=== PATIENT | female | born 1955 | race Caucasian/White ===

== ENCOUNTER 2018-12-26 20:52 | Observation (INO) | payer OTHER ==
[2018-12-26] MEDS ORDERED: SODIUM CHLORIDE 0.9% 1,000 ML IV STA (22:10)
[2018-12-26 22:46] LABS: Basophils # (A) 0.1 k/uL (0-0.2); Basophils % (A) 1 %; Eosinophils # (A) 0.3 k/uL (0-0.7); Eosinophils % (A) 4 %; HGB 11.8 gm/dL (11.4-16.0); Lymphocytes # (A) 1.7 k/uL (1.0-4.8); Lymphocytes % (A) 23 %; MCH 29.4 pg (25.0-35.0); MCHC 32.6 g/dL (31.0-37.0); Mean Platelet Volume 6.7; Monocytes # (A) 0.4 k/uL (0-1.0); Monocytes % (A) 5 %; Neutrophils # (A) 4.9 k/uL (1.3-7.7); Neutrophils % (A) 65 %; Platelet Count 253 k/uL (150-450); RDW 13.1 % (11.5-15.5); WBC 7.6 k/uL (3.8-10.6)
--- NOTE | 2018-12-26 22:46 | CT ---
EXAM: CT Abdomen and Pelvis Without Intravenous Contrast CLINICAL HISTORY: ITS.REASON CT Reason: abdominal pain TECHNIQUE: Axial computed tomography images of the abdomen and pelvis without intravenous contrast. CTDI is 10 mGy and DLP is 540 mGy-cm. This CT exam was performed using one or more of the following dose reduction techniques: automated exposure control, adjustment of the mA and/or kV according to patient size, and/or use of iterative reconstruction technique. COMPARISON: No relevant prior studies available. FINDINGS: Lung bases: Small opacity in the right lower lobe, likely subsegmental atelectasis. Mild cardiomegaly. ABDOMEN: Liver: 11 mm low-density lesion in the right liver, likely a cyst. Gallbladder and bile ducts: Unremarkable. Pancreas: No ductal dilation. Spleen: Unremarkable. Adrenals: Unremarkable. Kidneys and ureters: 15 mm low-density lesion in the right kidney. No obstructing stones. No hydronephrosis. Stomach and bowel: No bowel obstruction. No bowel wall thickening. PELVIS: Appendix: No appendicitis. Bladder: No stones. Reproductive: Unremarkable. ABDOMEN and PELVIS: Intraperitoneal space: Unremarkable. Bones/joints: No acute fractures. Grade 1 anterolisthesis of L3 on L4 with severe spinal canal stenosis. Right total hip arthroplasty hardware is intact. Soft tissues: Unremarkable. Vasculature: No abdominal aortic aneurysm. Lymph nodes: No enlarged lymph nodes. IMPRESSION: 1. No acute intra-abdominal process. 2. Grade 1 anterolisthesis of L3 on L4 with severe spinal canal stenosis. 3. Low-density lesion in the liver and right kidney, incompletely characterized left contrast, but possibly cysts. 4. Cardiomegaly. Small subsegmental atelectasis in the right lower lobe.
[2018-12-26 22:50] LABS: Appearance,Urine Clear (Clear); Bilirubin,Urine Negative (Negative); Blood,Urine Moderate (Negative); Color,Urine Light Yellow; Glucose,Urine (UA) Negative (Negative); Ketones,Urine Negative (Negative); Leukocyte Esterase,Urine Negative (Negative); Mucus,Urine Rare /hpf; Nitrite,Urine Negative (Negative); PH, Urine 6.5 (5.0-8.0); Protein,Urine Negative (Negative); RBC,Urine 11 /hpf (0-5); Specific Gravity,Urine 1.009 (1.001-1.035); Urobilinogen,Urine <2.0 mg/dL (<2.0); WBC,Urine <1 /hpf (0-5)
--- NOTE | 2018-12-26 22:53 | ED ---
General Adult HPI - General Source: patient Mode of arrival: wheelchair Limitations: no limitations <Leticia Mills - Last Filed: 12/27/18 02:19> <Malinda Thomas - Last Filed: 12/31/18 13:55> - General Chief complaint: Dizziness Stated complaint: Hypertensive Time Seen by Provider: 12/26/18 21:49 - History of Present Illness Initial comments: 63-year-old female patient presents to the emergency department today for multiple complaints. Patient states that for the last week she has been feeling fatigued, weak, and has been having increasing back pain. Patient states that she has been having back pain increasing over the last few months. States that she did have an MRI in November which showed severe degenerative disc disease. She is reporting radiation of the pain down the left leg to the knee. Denies saddle anesthesia or loss of bowel or bladder control. Denies numbness or tingling to the lower extremities. 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 Patient states she has been having low-grade fevers since onset of the parvo. Patient is reporting fevers daily from 99-101F. Patient states that her blood pressure has been elevated as well. Patient states she has been monitoring in his belt well over 200 systolic. States that her physician and started on carvedilol which is improved blood pressure but has not normalized it. Patient states that she is very sensitive to blood pressure medications and often gets headaches and leg pain with this. She denies any chest pain or shortness of breath. She is reporting mild lower abdominal pain. States that she is having some nausea intermittently but denies any vomiting. She is having urinary frequency. Denies any constipation or diarrhea. Patient denies any recent rash, shortness breath, chest pain, numbness, tingling, dizziness, weakness, headache, visual changes, or any other complaints. (Leticia Mills) - Related Data Home Medications Medication Instructions Recorded Confirmed Ibuprofen [Advil] 200 mg PO Q6HR PRN 12/27/18 12/27/18 L. Rhamnosus GG/Inulin [Culturelle 1 cap PO DAILY 12/27/18 12/27/18 Probiotics Capsule] QUEtiapine FUMARATE 12.5 mg PO HS 12/27/18 12/27/18 Ubiquinol 100 mg PO DAILY 12/27/18 12/27/18 Previous Rx's Medication Instructions Recorded Carvedilol [Coreg] 6.25 mg PO BID-W/MEALS #60 tab 12/28/18 Lisinopril [Zestril] 40 mg PO DAILY #60 tab 12/30/18 amLODIPine [Norvasc] 10 mg PO DAILY #30 tab 12/30/18 cloNIDine HCL [Catapres] 0.1 mg PO BID #60 tab 12/30/18 Allergies Allergy/AdvReac Type Severity Reaction Status Date / Time sulfamethoxazole Allergy Anaphylaxis Verified 12/27/18 07:32 [From Bactrim] trimethoprim [From Bactrim] Allergy Anaphylaxis Verified 12/27/18 07:32 fluoxetine AdvReac Rash/Hives Verified 12/27/18 07:32 fluoroquinolones Allergy Unknown Uncoded 12/27/18 07:32 Review of Systems ROS Other: All systems not noted in ROS Statement are negative. <Leticia Mills - Last Filed: 12/27/18 02:19> ROS Other: All systems not noted in ROS Statement are negative. <Malinda Thomas - Last Filed: 12/31/18 13:55> ROS Statement: Those systems with pertinent positive or pertinent negative responses have been documented in the HPI. Past Medical History Past Medical History: Asthma Additional Past Medical History / Comment(s): BRAIN TUMOR, SPINAL CORD LESION, Parvo, fallw ith broken nose, necrotizing facitits History of Any Multi-Drug Resistant Organisms: None Reported Additional Past Surgical History / Comment(s): RIGHT HIP Past Psychological History: No Psychological Hx Reported Smoking Status: Never smoker Past Alcohol Use History: Rare Past Drug Use History: None Reported <Leticia Mills - Last Filed: 12/27/18 02:19> General Exam Limitations: no limitations General appearance: alert, in no apparent distress, other (Physical well- developed, well-nourished adult female patient in no acute distress. Vital signs upon presentation are temperature 99.1F, pulse 66, respirations 18, blood pressure 218/118, pulse ox 97% on room air.) Eye exam: Present: normal appearance, PERRL, EOMI. Absent: scleral icterus, conjunctival injection, periorbital swelling ENT exam: Present: normal exam, normal oropharynx, mucous membranes moist Respiratory exam: Present: normal lung sounds bilaterally. Absent: respiratory distress, wheezes, rales, rhonchi, stridor Cardiovascular Exam: Present: regular rate, normal rhythm, normal heart sounds. Absent: systolic murmur, diastolic murmur, rubs, gallop, clicks GI/Abdominal exam: Present: soft, tenderness (Mild left and right lower quadrant tenderness), normal bowel sounds. Absent: distended, guarding, rebound, rigid Back exam: Present: normal inspection. Absent: CVA tenderness (R), CVA tenderness (L) Neurological exam: Present: alert, oriented X3, CN II-XII intact, other (Strength in all 4 extremities is 5/5.) Psychiatric exam: Present: normal affect, normal mood Skin exam: Present: warm, dry, intact, normal color. Absent: rash <Leticia Mills M - Last Filed: 12/27/18 02:19> Course Vital Signs 12/26/18 12/26/18 12/26/18 21:18 21:38 21:40 Temperature 99.1 F Pulse Rate 66 69 Pulse Rate [ 66 [employer] ] Respiratory 18 18 Rate Blood Pressure 218/118 197/108 O2 Sat by Pulse 97 96 Oximetry 12/26/18 12/27/18 12/27/18 23:18 00:19 00:31 Temperature Pulse Rate 67 72 Pulse Rate [ [employer] ] Respiratory 18 18 Rate Blood Pressure 207/114 189/97 152/94 O2 Sat by Pulse 97 94 L Oximetry 12/27/18 12/27/18 12/27/18 00:32 00:54 01:44 Temperature Pulse Rate 72 74 69 Pulse Rate [ [employer] ] Respiratory 20 20 20 Rate Blood Pressure 152/94 179/102 192/114 O2 Sat by Pulse 95 97 95 Oximetry 12/27/18 12/27/18 01:59 02:27 Temperature Pulse Rate 83 84 Pulse Rate [ [employer] ] Respiratory 20 18 Rate Blood Pressure 174/106 179/101 O2 Sat by Pulse 96 97 Oximetry EKG Findings - EKG Comments: EKG Findings:: EKG obtained at 00 55 shows normal sinus rhythm with a ventricular rate of 73, NV interval 190, QRS duration 98, QT 410, QTC 451. No evidence of ST elevation or depression. <Leticia Mills - Last Filed: 12/27/18 02:19> Medical Decision Making - Lab Data Result diagrams: 12/26/18 22:15 12/26/18 22:15 - Radiology Data Radiology results: report reviewed, image reviewed <Leticia Mills - Last Filed: 12/27/18 02:19> - Lab Data Result diagrams: 12/30/18 07:28 12/30/18 07:28 <Malinda Thomas - Last Filed: 12/31/18 13:55> - Medical Decision Making 63-year-old female patient presents to the emergency department today for evaluation of weakness, fatigue, and dizziness. Patient is also reporting her blood pressures have been high. She is reporting increased back pain and hematuria. Physical examination is relatively unremarkable. She is neurologically intact with no focal deficits. Labs reviewed and did reveal low potassium at 3.1. Urinalysis showed evidence for microscopic hematuria. With increased back pain and presence of blood in the urine he did perform CT abdomen and pelvis without contrast, states it did show a renal lesion which is low density probably a cyst but poorly characterized due to lack of contrast in the study. No evidence for kidney stone. No other abnormalities. Patient was given a dose of labetalol here in the emergency department, did improve blood pressure but then the blood pressure increased again. Patient did report feeling unwell with cramping after receiving the blood pressure medication. Given patient's symptoms and consistently high blood pressure we will admit for accelerated hypertension and further evaluation. (Leticia Mills) % And evaluated the patient. I do agree that based on the patient's significant hypertension she does require admission at hospital for hypertensive urgency. Patient care was discussed with admitting physician Dr. Jonathan Sánchez who agrees with plan for admission. (Malinda Thomas) - Lab Data Lab Results 12/26/18 12/26/18 12/26/18 Range/Units 22:15 22:15 22:15 WBC 7.6 (3.8-10.6) k/uL RBC 4.00 (3.80-5.40) m/uL Hgb 11.8 (11.4-16.0) gm/dL Hct 36.0 (34.0-46.0) % MCV 90.0 (80.0-100.0) fL MCH 29.4 (25.0-35.0) pg MCHC 32.6 (31.0-37.0) g/dL RDW 13.1 (11.5-15.5) % Plt Count 253 (150-450) k/uL Neutrophils % 65 % Lymphocytes % 23 % Monocytes % 5 % Eosinophils % 4 % Basophils % 1 % Neutrophils # 4.9 (1.3-7.7) k/uL Lymphocytes # 1.7 (1.0-4.8) k/uL Monocytes # 0.4 (0-1.0) k/uL Eosinophils # 0.3 (0-0.7) k/uL Basophils # 0.1 (0-0.2) k/uL PT 10.0 (9.0-12.0) sec INR 0.9 (<1.2) APTT 24.3 (22.0-30.0) sec Sodium 140 (137-145) mmol/L Potassium 3.1 L (3.5-5.1) mmol/L Chloride 103 (98-107) mmol/L Carbon Dioxide 27 (22-30) mmol/L Anion Gap 10 mmol/L BUN 22 H (7-17) mg/dL Creatinine 0.66 (0.52-1.04) mg/dL Est GFR (CKD-EPI)AfAm >90 (>60 ml/min/1.73 sqM) Est GFR (CKD-EPI)NonAf >90 (>60 ml/min/1.73 sqM) Glucose 94 (74-99) mg/dL Calcium 9.9 (8.4-10.2) mg/dL Total Bilirubin 0.3 (0.2-1.3) mg/dL AST 21 (14-36) U/L ALT 16 (9-52) U/L Alkaline Phosphatase 78 (38-126) U/L Troponin I (0.000-0.034) ng/mL Total Protein 7.1 (6.3-8.2) g/dL Albumin 4.2 (3.5-5.0) g/dL Amylase 73 (30-110) U/L Lipase 227 (23-300) U/L Urine Color Urine Appearance (Clear) Urine pH (5.0-8.0) Ur Specific [place] (1.001-1.035) Urine Protein (Negative) Urine Glucose (UA) (Negative) Urine Ketones (Negative) Urine Blood (Negative) Urine Nitrite (Negative) Urine Bilirubin (Negative) Urine Urobilinogen (<2.0) mg/dL Ur Leukocyte Esterase (Negative) Urine RBC (0-5) /hpf Urine WBC (0-5) /hpf Urine Mucus (None) /hpf 12/26/18 12/26/18 Range/Units 22:15 22:15 WBC (3.8-10.6) k/uL RBC (3.80-5.40) m/uL Hgb (11.4-16.0) gm/dL Hct (34.0-46.0) % MCV (80.0-100.0) fL MCH (25.0-35.0) pg MCHC (31.0-37.0) g/dL RDW (11.5-15.5) % Plt Count (150-450) k/uL Neutrophils % % Lymphocytes % % Monocytes % % Eosinophils % % Basophils % % Neutrophils # (1.3-7.7) k/uL Lymphocytes # (1.0-4.8) k/uL Monocytes # (0-1.0) k/uL Eosinophils # (0-0.7) k/uL Basophils # (0-0.2) k/uL PT (9.0-12.0) sec INR (<1.2) APTT (22.0-30.0) sec Sodium (137-145) mmol/L Potassium (3.5-5.1) mmol/L Chloride (98-107) mmol/L Carbon Dioxide (22-30) mmol/L Anion Gap mmol/L BUN (7-17) mg/dL Creatinine (0.52-1.04) mg/dL Est GFR (CKD-EPI)AfAm (>60 ml/min/1.73 sqM) Est GFR (CKD-EPI)NonAf (>60 ml/min/1.73 sqM) Glucose (74-99) mg/dL Calcium (8.4-10.2) mg/dL Total Bilirubin (0.2-1.3) mg/dL AST (14-36) U/L ALT (9-52) U/L Alkaline Phosphatase (38-126) U/L Troponin I 0.013 (0.000-0.034) ng/mL Total Protein (6.3-8.2) g/dL Albumin (3.5-5.0) g/dL Amylase (30-110) U/L Lipase (23-300) U/L Urine Color Light Yellow Urine Appearance Clear (Clear) Urine pH 6.5 (5.0-8.0) Ur Specific [place] 1.009 (1.001-1.035) Urine Protein Negative (Negative) Urine Glucose (UA) Negative (Negative) Urine Ketones Negative (Negative) Urine Blood Moderate H (Negative) Urine Nitrite Negative (Negative) Urine Bilirubin Negative (Negative) Urine Urobilinogen <2.0 (<2.0) mg/dL Ur Leukocyte Esterase Negative (Negative) Urine RBC 11 H (0-5) /hpf Urine WBC <1 (0-5) /hpf Urine Mucus Rare H (None) /hpf - Radiology Data CT abdomen and pelvis without contrast was obtained. Report was reviewed in its entirety. Impression by Dr. Vicente shows no acute intra-abdominal process. Grade 1 anterolisthesis of L3 and L4 with severe spinal canal stenosis. The density lesion in the liver and right kidney, incomplete we characterized without contrast, possibly cyst. Cardiomegaly. Small subsegmental atelectasis in the right lower lobe. (Leticia Mills) Disposition Decision to Admit Reason: Admit from EC Decision Date: 12/27/18 Decision Time: 01:33 <Leticia Mills - Last Filed: 12/27/18 02:19> <Malinda Thomas - Last Filed: 12/31/18 13:55> Clinical Impression: Accelerated hypertension Disposition: ADMITTED IP TO THIS [facility] Condition: Stable
[2018-12-26 22:57] LABS: ALT 16 U/L (9-52); AST 21 U/L (14-36); African American GFR (CKD) >90 (>60 ml/min/1.73 sqM); Albumin 4.2 g/dL (3.5-5.0); Alkaline Phosphatase 78 U/L (38-126); Amylase 73 U/L (30-110); Anion Gap 10 mmol/L; Blood Urea Nitrogen 22 mg/dL (7-17); Calcium 9.9 mg/dL (8.4-10.2); Carbon Dioxide 27 mmol/L (22-30); Chloride 103 mmol/L (98-107); Glucose 94 mg/dL (74-99); Potassium 3.1 mmol/L (3.5-5.1); Sodium 140 mmol/L (137-145); Total Bilirubin 0.3 mg/dL (0.2-1.3); Total Protein 7.1 g/dL (6.3-8.2)
[2018-12-26] MEDS ORDERED: POTASSIUM CHLORIDE ER 20 MEQ TAB.ER PO STA (22:58)
[2018-12-26 23:03] LABS: INR 0.9 (<1.2); Partial Thromboplastin Time 24.3 sec (22.0-30.0)
[2018-12-26] MEDS ORDERED: LABETALOL 5 MG/ML VIAL MDV IVP STA (23:49)
[2018-12-27] MEDS ORDERED: NALOXONE 0.4 MG/ML 1 ML VIAL IV PRN (01:35)
[2018-12-27] MEDS ORDERED: hydrALAZINE HCL 20 MG/ML 1 ML VIAL IVP STA (01:36)
[2018-12-27 03:43] VITALS: BMI 29.7
[2018-12-27] MEDS: ACETAMINOPHEN TAB 325 MG TAB PO PRN ×2 (05:13→21:54)
[2018-12-27 07:23] LABS: ALT 21 U/L (9-52); AST 18 U/L (14-36); African American GFR (CKD) >90 (>60 ml/min/1.73 sqM); Albumin 3.9 g/dL (3.5-5.0); Alkaline Phosphatase 76 U/L (38-126); Anion Gap 8 mmol/L; Blood Urea Nitrogen 15 mg/dL (7-17); Calcium 9.5 mg/dL (8.4-10.2); Carbon Dioxide 26 mmol/L (22-30); Chloride 108 mmol/L (98-107); Glucose 110 mg/dL (74-99); Magnesium 1.9 mg/dL (1.6-2.3); Potassium 2.9 mmol/L (3.5-5.1); Sodium 142 mmol/L (137-145); Total Bilirubin 0.6 mg/dL (0.2-1.3); Total Protein 6.7 g/dL (6.3-8.2)
[2018-12-27] MEDS ORDERED: CARVEDILOL 12.5 MG TAB PO SCH (07:30)
[2018-12-27] MEDS ORDERED: CARVEDILOL 3.125 MG TAB PO SCH (07:30)
[2018-12-27] MEDS ORDERED: Potassium Replacement Protocol 1 EACH MISC MISCELLANE PRN (07:47)
[2018-12-27] MEDS: POTASSIUM CHLORIDE ER 20 MEQ TAB.ER PO SCH ×3 (08:37→10:54)
[2018-12-27] MEDS ORDERED: CARVEDILOL 3.125 MG TAB PO STA (13:15)
--- NOTE | 2018-12-27 14:03 | P.HPIM ---
History of Present Illness H&P Date: 12/27/18 Claire Aden is a 63 yo F with PMH significant for hypertension, back pain, insomnia who presented to [facility] ED after she was found to be in hypertensive emergency at urgent care. She states she is currently being worked up for back pain and she had a viral infection a few months ago which she feels has caused her some residual fatigue and myalgias. Pt went to [place] yesterday to discuss her fatigue and while there was noted to have a BP of 200s systolic over 100s. In the ED, pt was hypertensive to 220/120, pulse 64, remained of labs wnl with exception of mild hypokalemia. She denied chest pain but endorses headache and blurry vision. Pt also complained of generalized abdominal pain and CT abd/pelvis was performed which was negative. Pt was recently started on coreg by her PCP which she states controlls her BP somewhat but has not had a chance to adjust the dose as she has many side effects with BP medications. Pt states "I have tried about 50 different BP pills and none of them work." She complains of headache and blurry vision with the coreg, states she was recently trialled on aldactone which made her lightheaded. Review of Systems All systems: negative Constitutional: Reports malaise, Reports weakness, Denies chills, Denies fever Eyes: denies blurred vision, denies pain Ears, nose, mouth and throat: Denies headache, Denies sore throat Cardiovascular: Reports high blood pressure, Reports lightheadedness, Denies chest pain, Denies dyspnea on exertion, Denies edema, Denies shortness of breath Respiratory: Denies cough Gastrointestinal: Denies abdominal pain, Denies diarrhea, Denies nausea, Denies vomiting Genitourinary: Denies dysuria, Denies hematuria Musculoskeletal: Denies myalgias Integumentary: Denies pruritus, Denies rash Neurological: Reports headaches, Denies numbness, Denies weakness Psychiatric: Denies anxiety, Denies depression Endocrine: Denies fatigue, Denies weight change Past Medical History Past Medical History: Asthma Additional Past Medical History / Comment(s): BRAIN TUMOR, SPINAL CORD LESION, Parvo, fall with broken nose, necrotizing fasciitis History of Any Multi-Drug Resistant Organisms: None Reported Additional Past Surgical History / Comment(s): RIGHT HIP, septoplasty, Past Anesthesia/Blood Transfusion Reactions: No Reported Reaction Past Psychological History: No Psychological Hx Reported Smoking Status: Former smoker Past Alcohol Use History: Rare Past Drug Use History: Marijuana Additional Drug Use History / Comment(s): CBD oil - Past Family History mother Family Medical History: No Reported History father Family Medical History: No Reported History Medications and Allergies Home Medications Medication Instructions Recorded Confirmed Type Carvedilol [Coreg] 1.56 - 3.125 mg PO BID 12/27/18 12/27/18 History Ibuprofen [Advil] 200 mg PO Q6HR PRN 12/27/18 12/27/18 History L. Rhamnosus GG/Inulin [Culturelle 1 cap PO DAILY 12/27/18 12/27/18 History Probiotics Capsule] QUEtiapine FUMARATE 12.5 mg PO HS 12/27/18 12/27/18 History Ubiquinol 100 mg PO DAILY 12/27/18 12/27/18 History Allergies Allergy/AdvReac Type Severity Reaction Status Date / Time sulfamethoxazole Allergy Anaphylaxis Verified 12/27/18 07:32 [From Bactrim] trimethoprim [From Bactrim] Allergy Anaphylaxis Verified 12/27/18 07:32 fluoxetine AdvReac Rash/Hives Verified 12/27/18 07:32 fluoroquinolones Allergy Unknown Uncoded 12/27/18 07:32 Physical Exam Vitals: Vital Signs Temp Pulse Pulse Pulse Resp BP BP 12/27/18 12:15 98 F 70 16 175/91 12/27/18 08:35 97.8 F 76 16 12/27/18 04:00 76 16 12/27/18 02:27 84 18 179/101 12/27/18 01:59 83 20 174/106 12/27/18 01:44 69 20 192/114 12/27/18 00:54 74 20 179/102 12/27/18 00:32 72 20 152/94 12/27/18 00:31 72 18 152/94 12/27/18 00:19 67 18 189/97 12/26/18 23:18 207/114 12/26/18 21:40 66 12/26/18 21:38 69 18 197/108 12/26/18 21:18 99.1 F 66 18 218/118 BP Pulse Ox 12/27/18 12:15 182/84 97 12/27/18 08:35 146/73 95 12/27/18 04:00 191/104 94 L 12/27/18 02:27 97 12/27/18 01:59 96 12/27/18 01:44 95 12/27/18 00:54 97 12/27/18 00:32 95 12/27/18 00:31 94 L 12/27/18 00:19 97 12/26/18 23:18 12/26/18 21:40 12/26/18 21:38 96 12/26/18 21:18 97 Intake and Output 12/26/18 12/27/18 12/27/18 22:59 06:59 14:59 Intake Total 1000 120 Balance 1000 120 Intake: Intake, IV Titration 1000 Amount Sodium Chloride 0.9% 1, 1000 000 ml @ 999 mls/hr IV . Q1H1M STA Rx#:[id number] Oral 120 Other: Voiding Method Toilet # Voids 5 0 Weight 72.575 kg 73 kg General: Obese, well developed, NAD. Vitals reviewed Eyes: PERRL, EOMI, conjunctiva normal HENT: normocephalic, mucus membranes moist Neck: supple, no JVD Lungs: normal respiratory effort, no wheezes or rales CV: Regular rate and rhythm, no murmur. Peripheral pulses 2+ Abdomen: soft, nondistended, no organomegaly Lymph: no cervical or axillary LAD Skin: warm and dry. Neuro: A&Ox3, normal mood and affect Results CBC & Chem 7: 12/26/18 22:15 12/27/18 06:39 Labs: Abnormal Lab Results - Last 24 Hours (Table) 12/26/18 12/26/18 12/27/18 Range/Units 22:15 22:15 06:39 Potassium 3.1 L 2.9 L (3.5-5.1) mmol/L Chloride 108 H (98-107) mmol/L BUN 22 H (7-17) mg/dL Glucose 110 H (74-99) mg/dL Urine Blood Moderate H (Negative) Urine RBC 11 H (0-5) /hpf Urine Mucus Rare H (None) /hpf Thrombosis Risk Factor Assmnt - Choose All That Apply Any of the Below Risk Factors Present?: Yes Each Factor Represents 1 point: Obesity (BMI >25), Swollen legs (current) Other Risk Factors: Yes Each Risk Factor Represents 2 Points: Age 61-74 years Thrombosis Risk Factor Assessment Total Risk Factor Score: 4 Thrombosis Risk Factor Assessment Level: Moderate Risk Assessment and Plan (1) Accelerated hypertension Current Visit: Yes Status: Acute Code(s): I10 - ESSENTIAL (PRIMARY) HYPERTENSION SNOMED Code(s): 75929371 (2) Hypokalemia Current Visit: Yes Status: Acute Code(s): E87.6 - HYPOKALEMIA SNOMED Code(s): 67169303 Plan: 1. Accelerated hypertension with hypertensive emergency. S/p labetolol and hydralazine in the ED. Increase coreg to 6.25 mg bid. Will continue to monitor and consider starting lisinopril as well 2. Hypokalemia. Replete per protocol
[2018-12-27] MEDS: LISINOPRIL 10 MG TAB PO SCH (18:33)
[2018-12-27] MEDS: CARVEDILOL 6.25 MG TAB PO SCH (18:34)
[2018-12-27] MEDS ORDERED: POTASSIUM CHLORIDE ER 20 MEQ TAB.ER PO ONE (19:00)
[2018-12-27] MEDS ORDERED: QUEtiapine 25 MG TAB PO SCH (21:00)
[2018-12-27] MEDS: QUEtiapine 25 MG TAB PO SCH (21:55)
[2018-12-28] MEDS: CARVEDILOL 6.25 MG TAB PO SCH ×2 (07:40→16:38)
[2018-12-28] MEDS: LISINOPRIL 10 MG TAB PO SCH (08:25)
[2018-12-28] MEDS ORDERED: LISINOPRIL 10 MG TAB PO STA (09:26)
[2018-12-28] MEDS: ACETAMINOPHEN TAB 325 MG TAB PO PRN (10:56)
[2018-12-28] MEDS: QUEtiapine 25 MG TAB PO SCH (20:36)
[2018-12-29] MEDS: ACETAMINOPHEN TAB 325 MG TAB PO PRN (07:35)
[2018-12-29] MEDS: IBUPROFEN 200 MG TAB PO PRN ×2 (09:20→22:12)
[2018-12-29] MEDS: LISINOPRIL 20 MG TAB PO SCH ×2 (09:20→11:51)
[2018-12-29] MEDS: CARVEDILOL 6.25 MG TAB PO SCH ×2 (09:20→16:53)
[2018-12-29] MEDS ORDERED: PREGABALIN 25 MG CAP PO PRN (09:47)
[2018-12-29] MEDS ORDERED: amLODIPine 5 MG TAB PO SCH (12:15)
--- NOTE | 2018-12-29 12:51 | P.PN ---
Subjective Progress Note Date: 12/28/18 Claire Aden is a 63 yo F with PMH significant for hypertension, back pain, insomnia who presented to [facility] ED after she was found to be in hypertensive emergency at urgent care. She states she is currently being worked up for back pain and she had a viral infection a few months ago which she feels has caused her some residual fatigue and myalgias. Pt went to [employer] yesterday to discuss her fatigue and while there was noted to have a BP of 200s systolic over 100s. In the ED, pt was hypertensive to 220/120, pulse 64, remained of labs wnl with exception of mild hypokalemia. She denied chest pain but endorses headache and blurry vision. Pt also complained of generalized abdominal pain and CT abd/pelvis was performed which was negative. Pt was recently started on coreg by her PCP which she states controlls her BP somewhat but has not had a chance to adjust the dose as she has many side effects with BP medications. Pt states "I have tried about 50 different BP pills and none of them work." She complains of headache and blurry vision with the coreg, states she was recently trialled on aldactone which made her lightheaded. 12/28/2018 systolic blood pressures in the 170s ,increased lisinopril dose. Creatinine 0.59 Telemetry sinus rhythm. Complains of sciatica discomfort. Pot assium 2.9, receiving supplements. Denies chest pain, palpitations or shortness of breath. Denies lightheadedness dizziness or focal deficits. Objective - Vital Signs Vital signs: Vital Signs Temp 98.1 F 12/28/18 08:00 Pulse 72 12/28/18 16:00 Resp 16 12/28/18 16:00 BP 169/77 12/28/18 16:00 Pulse Ox 95 12/28/18 16:00 Intake & Output 12/27/18 12/28/18 12/28/18 18:59 06:59 18:59 Intake Total 480 480 Balance 480 480 Weight 75.2 kg Intake: Oral 480 480 Other: Voiding Method Toilet Toilet # Voids 1 1 0 # Bowel Movements 0 0 - Exam General: Obese, well developed, NAD. Eyes: PERRL, EOMI, conjunctiva normal HENT: normocephalic, mucus membranes moist Neck: supple, no JVD Lungs: normal respiratory effort, no wheezes or rales CV: Regular rate and rhythm, no murmur. Peripheral pulses 2+ Abdomen: soft, nondistended, no organomegaly, positive bowel sounds Skin: warm and dry. Neuro: A&Ox3, normal mood and affect - Labs CBC & Chem 7: 12/26/18 22:15 12/27/18 15:58 Labs: Microbiology - Last 24 Hours (Table) 12/26/18 23:00 Blood Culture - Preliminary Blood No Growth after 24 hours Assessment and Plan Assessment: (1) Accelerated hypertension Current Visit: Yes Status: Acute Code(s): I10 - ESSENTIAL (PRIMARY) HYPERTENSION SNOMED Code(s): 20232252 (2) Hypokalemia Current Visit: Yes Status: Acute Code(s): E87.6 - HYPOKALEMIA SNOMED Code(s): 88447260 (3) 11 mm low-density lesion right liver, likely a cyst; 15 mm low-density lesion in the right kidney- no obstructing stones, no hydronephrosis ;outpatient ultrasound recommended for further evaluation (4) grade 1 anterior listhesis of L3 on L4 with severe spinal canal stenosis (5) atelectasis Plan: Continue on current medication regime ,monitoring and symptomatic treatment. Lisinopril dose further increase this morning, continue to monitor with potential discharge later this afternoon if blood pressure improves. Ibuprofen added on for complaints of sciatica pain. Orthopedics consult ordered regarding severe spinal canal stenosis The impression and plan of care has been dictated as directed. : I performed a history and examination of this patient, discussed the same with the dictator. I agree with the dictator's note ,documented as a scribe. Any additional findings or plans will be noted.
[2018-12-29] MEDS ORDERED: amLODIPine 5 MG TAB PO STA (14:40)
[2018-12-29] MEDS: QUEtiapine 25 MG TAB PO SCH (22:07)
[2018-12-30] MEDS: IBUPROFEN 200 MG TAB PO PRN (04:39)
[2018-12-30] MEDS ORDERED: ALPRAZolam 0.25 MG TAB PO PRN (06:38)
--- NOTE | 2018-12-30 06:43 | P.PN ---
Subjective Progress Note Date: 12/29/18 Claire Aden is a 63 yo F with PMH significant for hypertension, back pain, insomnia who presented to [facility] ED after she was found to be in hypertensive emergency at urgent care. She states she is currently being worked up for back pain and she had a viral infection a few months ago which she feels has caused her some residual fatigue and myalgias. Pt went to [facility] yesterday to discuss her fatigue and while there was noted to have a BP of 200s systolic over 100s. In the ED, pt was hypertensive to 220/120, pulse 64, remained of labs wnl with exception of mild hypokalemia. She denied chest pain but endorses headache and blurry vision. Pt also complained of generalized abdominal pain and CT abd/pelvis was performed which was negative. Pt was recently started on coreg by her PCP which she states controlls her BP somewhat but has not had a chance to adjust the dose as she has many side effects with BP medications. Pt states "I have tried about 50 different BP pills and none of them work." She complains of headache and blurry vision with the coreg, states she was recently trialled on aldactone which made her lightheaded. 12/28/2018 systolic blood pressures in the 170s ,increased lisinopril dose. Creatinine 0.59 Telemetry sinus rhythm. Complains of sciatica discomfort. Pot assium 2.9, receiving supplements. Denies chest pain, palpitations or shortness of breath. Denies lightheadedness dizziness or focal deficits. 12/29/2018 telemetry sinus rhythm , systolic blood pressure fluctuating from 130s to 170s. Lisinopril dose increased, Norvasc added. Objective - Vital Signs Vital signs: Vital Signs Temp 96.3 F L 12/29/18 08:00 Pulse 75 12/29/18 12:00 Resp 16 12/29/18 15:45 BP 182/80 12/29/18 14:11 Pulse Ox 99 12/29/18 08:00 Intake & Output 12/28/18 12/29/18 12/29/18 18:59 06:59 18:59 Intake Total 480 240 Balance 480 240 Weight 76.8 kg Intake: Oral 480 240 Other: Voiding Method Toilet Toilet Toilet # Voids 0 2 # Bowel Movements 0 0 - Exam General: Obese, well developed, NAD, anxious. Eyes: PERRL, EOMI, conjunctiva normal HENT: normocephalic, mucus membranes moist Neck: supple, no JVD Lungs: normal respiratory effort, no wheezes or rales CV: Regular rate and rhythm, no murmur. Peripheral pulses 2+ Abdomen: soft, nondistended, no organomegaly, positive bowel sounds Skin: warm and dry. Neuro: A&Ox3, normal mood and affect - Labs CBC & Chem 7: 12/26/18 22:15 12/27/18 15:58 Labs: Microbiology - Last 24 Hours (Table) 12/26/18 23:00 Blood Culture - Preliminary Blood No Growth after 48 hours Assessment and Plan Assessment: (1) Accelerated hypertension Current Visit: Yes Status: Acute Code(s): I10 - ESSENTIAL (PRIMARY) HYPERTENSION SNOMED Code(s): 77474918 (2) Hypokalemia Current Visit: Yes Status: Acute Code(s): E87.6 - HYPOKALEMIA SNOMED Code(s): 27326797 (3) 11 mm low-density lesion right liver, likely a cyst; 15 mm low-density lesion in the right kidney- no obstructing stones, no hydronephrosis ;outpatient ultrasound recommended for further evaluation (4) grade 1 anterior listhesis of L3 on L4 with severe spinal canal stenosis (5) atelectasis (6) anxiety Plan: Continue on current medication regime ,monitoring and symptomatic treatment. Lisinopril increased, Norvasc added to med regime. Xanax added prn for anxiety. Echo ordered. Cardiology consulted. Close monitoring of electrolytes, renal function with repeat labs ordered for a.m. The impression and plan of care has been dictated as directed. : I performed a history and examination of this patient, discussed the same with the dictator. I agree with the dictator's note ,documented as a scribe. Any additional findings or plans will be noted.
[2018-12-30] MEDS: CARVEDILOL 6.25 MG TAB PO SCH (06:47)
[2018-12-30 07:57] LABS: Basophils % (A) 1 %; Eosinophils # (A) 0.3 k/uL (0-0.7); Eosinophils % (A) 5 %; HGB 11.5 gm/dL (11.4-16.0); Lymphocytes # (A) 1.6 k/uL (1.0-4.8); Lymphocytes % (A) 28 %; MCHC 32.8 g/dL (31.0-37.0); MCV 91.4 fL (80.0-100.0); Mean Platelet Volume 6.8; Monocytes # (A) 0.3 k/uL (0-1.0); Monocytes % (A) 5 %; Neutrophils # (A) 3.4 k/uL (1.3-7.7); Neutrophils % (A) 60 %; Platelet Count 262 k/uL (150-450); RBC 3.83 m/uL (3.80-5.40); RDW 12.9 % (11.5-15.5); WBC 5.6 k/uL (3.8-10.6)
[2018-12-30 08:09] LABS: African American GFR (CKD) >90 (>60 ml/min/1.73 sqM); Anion Gap 6 mmol/L; Blood Urea Nitrogen 21 mg/dL (7-17); Calcium 9.8 mg/dL (8.4-10.2); Carbon Dioxide 29 mmol/L (22-30); Chloride 104 mmol/L (98-107); Glucose 86 mg/dL (74-99); Potassium 3.7 mmol/L (3.5-5.1); Sodium 139 mmol/L (137-145)
[2018-12-30] MEDS: LISINOPRIL 20 MG TAB PO SCH (08:52)
[2018-12-30 08:55] VITALS: RESP 16; TEMP 97.9
[2018-12-30] MEDS ORDERED: amLODIPine 10 MG TAB PO SCH (09:00)
[2018-12-30] MEDS ORDERED: cloNIDine HCL 0.1 MG TAB PO SCH (09:00)
--- NOTE | 2018-12-30 09:41 | P.CNOR ---
History of Present Illness - [facility] Consult date: 12/30/18 Consult reason: low back pain (Low back pain with lower extremity radiculopathy on the left) History of present illness: Patient's very pleasant [id number] female who has had history of low back pain over the past few months. She has some chronic on and off type pain in her low back but has worsened over the past few months. She says it correlated with her recent history of Parvo over the past 3 months. She normally lives in [place] but Naresh Velazquez here in [place]. She says she has been having treatment for her low back over the past few months with physical therapy as well as acupuncture. She continues her physical therapy with [facility] physical therapy. She also had taken the gabapentin tramadol as well as Advil she says the medicines have very limited benefit for her. Severe pain is in her low back and extends down her left lower extremity at bedside back of her leg down to her foot. She denies any specific weakness. She says she still able to ambulate and mobilize. She is not having troubles with bowel bladder function. She came hospital due to hypertensive issues and where she was in the 200s over 100. They have been trying to control her blood pressure and is making some progress with this. Review of Systems She denies any shortness breath. She denies any change in bowel bladder function. She denies weakness in her lower shoulders. She feels her pain stems down her left leg and from her back. She did not have any new injury but had a history of a fall several years ago. She denies bowel or bladder changes. Past Medical History Past Medical History: Asthma, Hypertension Additional Past Medical History / Comment(s): BRAIN TUMOR, SPINAL CORD LESION, Parvo, fall with broken nose, necrotizing fasciitis History of Any Multi-Drug Resistant Organisms: None Reported Additional Past Surgical History / Comment(s): RIGHT HIP, septoplasty, Past Anesthesia/Blood Transfusion Reactions: No Reported Reaction Past Psychological History: No Psychological Hx Reported Smoking Status: Former smoker Past Alcohol Use History: Rare Past Drug Use History: Marijuana Additional Drug Use History / Comment(s): CBD oil - Past Family History mother Family Medical History: No Reported History father Family Medical History: No Reported History Medications and Allergies Home Medications Medication Instructions Recorded Confirmed Type Ibuprofen [Advil] 200 mg PO Q6HR PRN 12/27/18 12/27/18 History L. Rhamnosus GG/Inulin [Culturelle 1 cap PO DAILY 12/27/18 12/27/18 History Probiotics Capsule] QUEtiapine FUMARATE 12.5 mg PO HS 12/27/18 12/27/18 History Ubiquinol 100 mg PO DAILY 12/27/18 12/27/18 History Carvedilol [Coreg] 6.25 mg PO BID-W/MEALS #60 tab 12/28/18 Rx Lisinopril 20 mg PO DAILY #30 tab 12/28/18 Rx Allergies Allergy/AdvReac Type Severity Reaction Status Date / Time sulfamethoxazole Allergy Anaphylaxis Verified 12/27/18 07:32 [From Bactrim] trimethoprim [From Bactrim] Allergy Anaphylaxis Verified 12/27/18 07:32 fluoxetine AdvReac Rash/Hives Verified 12/27/18 07:32 fluoroquinolones Allergy Unknown Uncoded 12/27/18 07:32 Physical Examination Osteopathic Statement: *. No significant issues noted on an osteopathic struc tural exam other than those noted in the History and Physical/Consult. - L Spine: dermatomal strength & reflexes bilateral Strength: hip flexion: 5/5 (At her low back is no open wounds lacerations or abrasions. Skin is clear. She is able stand up in her room and ambulate in her room though she does site some what gingerly. She is able to walk her toes and heels. She has 5 out of 5 strength dorsal flexion plantar flexion and EHL hip flexion and extension. Her thighs and calves soft and nontender. Her abdomen soft nontender. Chest has good excursion deep inspiration and expiration neck is nontender to palpation range of motion. Her arms have full active and passive range of motion. HEENT is normocephalic atraumatic. Her blood pressure is 150's over 90s) Results - Labs Labs: Abnormal Lab Results - Last 24 Hours (Table) 12/30/18 Range/Units 07:28 BUN 21 H (7-17) mg/dL Microbiology - Last 24 Hours (Table) 12/26/18 23:00 Blood Culture - Preliminary Blood No Growth after 72 hours H & H 12/26/18 12/30/18 Range/Units 22:15 07:28 Hgb 11.8 11.5 (11.4-16.0) gm/dL Hct 36.0 35.0 (34.0-46.0) % Coagulation 12/26/18 Range/Units 22:15 INR 0.9 (<1.2) Result Diagrams: 12/30/18 07:28 12/30/18 07:28 - Diagnostic results CT Scan - lumbar: report reviewed (There is a computed tomography scan abdomen and pelvis in which the lumbar spine is able to be viewed to some degree. Apparently she had an MRI done in [place] a couple months ago but does not have those images available. The images show significant degenerative change at L3 4 and L4 5. She has a grade 1-2 spondylolisthesis L3 4 and severe disc height loss L3 4 and L4 5. There is evidence of stenosis with bilateral foraminal stenosis and facet arthrosis L3 4 L4 5.), image reviewed Assessment and Plan Assessment: Uncontrolled hypertension Low back pain with left lower extremity radiculopathy Spinal stenosis L3 4 L4 5 Spondylolisthesis L3 4 Neurogenic intermittent claudication bilateral lower extremities due to her spinal stenosis Degenerative disc disease and facet arthrosis Plan: Uncontrolled hypertension Low back pain with left lower extremity radiculopathy Spinal stenosis L3 4 L4 5 Spondylolisthesis L3 4 Neurogenic intermittent claudication bilateral lower extremities due to her spinal stenosis Degenerative disc disease and facet arthrosis The patient is currently admitted in terms of her hypertensive issues and I think she has been receiving appropriate care for this. She'll continue medical management from medicine and cardiology in terms of her hypertension. She has chronic changes at her lumbar spine with spondylolisthesis and spinal stenosis. She is currently involved in outpatient management with physical therapy and medications. She is a candidate for interventional pain management for epidural steroid injections to see if this can alleviate some of her back symptoms as well as her lower extremity radicular and claudication symptoms. We will consult interventional pain management for possible epidural steroid injections. These can be done on an outpatient basis and can continue with management on an outpatient basis as well. The patient is a candidate for surgical intervention for her lumbar spine. Certainly would like to exhaust all conservative measures prior to considering surgical intervention. She would be a candidate for decompression and fusion L3 4 and L4 5. I discussed this at length with her. I do not plan surgical intervention on this admission as she is neurologically stable. She may be able to undergo interventional pain management for epidural steroid injections to see if this alleviates her symptoms adequately. From a spine surgery standpoint it is okay for her to be discharged when she is stable from a medical standpoint and we can continue follow her up on an outpatient basis. We will consult interventional pain management to see her back in our office next 2-3 weeks for recheck evaluation or sooner if she is having worsening.
--- NOTE | 2018-12-30 10:04 | CONS ---
CONSULTATION CHIEF COMPLAINT: Uncontrolled hypertension. This is a 63-year-old lady with history of hypertension who was admitted to the hospital with severe uncontrolled hypertension. On her initial presentation, her blood pressures were in the 200 systolic. She denies chest pain, difficulty in breathing, palpitations, dizziness or focal neurological deficits. There is no history of leg edema, paroxysmal nocturnal dyspnea or orthopnea. She has had back pain related to spinal stenosis. At the time of my evaluation, her blood pressures are better controlled on Norvasc 10 mg daily, Coreg 6.25 b.i.d., and Zestril 40 mg daily. However, the blood pressures are still not optimally controlled. I am adding Catapres 0.1 mg b.i.d. I advised her to undergo an echocardiogram. She has had labs on this admission. The potassium was low and that has been supplemented. It is at 3.7. Creatinine is 0.6. Troponin was negative. PAST MEDICAL HISTORY: Significant for back pain and hypertension. CURRENT MEDICATIONS: Current medications include quetiapine, ibuprofen, lisinopril and Coreg. ALLERGIES: Allergic to SULFA, FLUOROQUINOLONES, and FLUOXETINE. FAMILY HISTORY: Negative for premature coronary artery disease. SOCIAL HISTORY: Negative for current smoking, EtOH abuse or drug abuse. REVIEW OF SYSTEMS: HEENT is unremarkable. CARDIAC: As described above. RESPIRATORY: As described above. GI: Negative. GENITOURINARY: Negative. ALLERGIES/IMMUNOLOGY: Negative. MUSCULOSKELETAL: Significant for back pain. PSYCHOSOCIAL: Negative. ENDOCRINE: Negative. DERM: Negative. CONSTITUTIONAL: Negative. ONCOLOGICAL: Negative. Rest of the system review is not relevant. PHYSICAL EXAMINATION: On exam, patient is comfortable at rest. Afebrile. Heart rate is 65 beats per minute. Blood pressure is 159/81. O2 sat is 97% on room air. There is no jugular venous distention. Carotid upstroke is normal. There is no bruit. Chest exam reveals good air entry bilaterally. Heart exam reveals first and second heart sounds. No gallop. An S4 is heard. Abdomen is soft. Examination of extremities did not reveal any edema. Peripheral pulses are felt. LABS: Labs show that the hemoglobin is 11.5, platelet count is 260. Potassium is 3.7. Creatinine is 0.6. ASSESSMENT: Severe uncontrolled hypertension. PLAN: I will add Catapres to her current medical regimen. I will review the echocardiogram hopefully home later today. She already has an appointment to see Dr. Pino next . She will keep that appointment. MMODL / IJN: [id number] /
--- NOTE | 2018-12-30 11:33 | ECHOF ---
Referral Reason:HTN MEASUREMENTS -------- HEIGHT: 160.0 cm WEIGHT: 75.3 kg BP: 169/81 RVIDd: 3.3 cm (< 3.3) IVSd: 1.9 cm (0.6 - 1.1) LVIDd: 4.1 cm (3.9 - 5.3) LVPWd: 2.1 cm (0.6 - 1.1) IVSs: 2.0 cm LVIDs: 2.8 cm LVPWs: 2.2 cm LAESV Index (A-L): 48.36 ml/m Ao Diam: 3.0 cm (2.0 - 3.7) AV Cusp: 1.5 cm (1.5 - 2.6) LA Diam: 3.8 cm (2.7 - 3.8) MV EXCURSION: 13.189 mm (> 18.000) MV EF SLOPE: 56 mm/s (70 - 150) EPSS: 0.3 cm MV E Derrick: 0.76 m/s MV DecT: 261 ms MV A Derrick: 1.23 m/s MV E/A Ratio: 0.62 RAP: 5.00 mmHg RVSP: 26.31 mmHg FINDINGS -------- Sinus rhythm. This was a technically adequate study. The left ventricular size is normal. There is severe concentric left ventricular hypertrophy. Ove rall left ventricular systolic function is normal with, an EF between 60 - 65 %. Mitral Doppler inf low pattern suggests diastolic filling abnormality 14.66. The right ventricle is mildly enlarged. LA is severely dilated >40 ml/m2 The right atrial size is normal. Interatrial and interventricular septum intact. The aortic valve is trileaflet and appears structurally normal. There is mild aortic valve sclerosi s. There is no evidence of aortic regurgitation. There is no evidence of aortic stenosis. Efuq-ov-krmzvkub mitral regurgitation is present. Mild tricuspid regurgitation present. There is no evidence of pulmonary hypertension. The right v entricular systolic pressure, as measured by Doppler, is 26.31mmHg. There is no pulmonic regurgitation present. The aortic root size is normal. Normal inferior vena cava with normal inspiratory collapse consistent with estimated right atrial pre ssure of 5 mmHg. There is no pericardial effusion. CONCLUSIONS -------- 1. Sinus rhythm. 2. This was a technically adequate study. 3. The left ventricular size is normal. 4. There is severe concentric left ventricular hypertrophy. 5. Overall left ventricular systolic function is normal with, an EF between 60 - 65 %. 6. Mitral Doppler inflow pattern suggest diastolic filling abnormality 14.66. 7. The right ventricle is mildly enlarged. 8. LA is severely dilated >40 ml/m2 9. The right atrial size is normal. 10. Interatrial and interventricular septum intact. 11. The aortic valve is trileaflet and appears structurally normal. 12. There is mild aortic valve sclerosis. 13. There is no evidence of aortic regurgitation. 14. There is no evidence of aortic stenosis. 15. Eiuc-hq-kqszwekd mitral regurgitation is present. 16. Mild tricuspid regurgitation present. 17. There is no evidence of pulmonary hypertension. 18. The right ventricular systolic pressure, as measured by Doppler, is 26.31mmHg. 19. There is no pulmonic regurgitation present. 20. The aortic root size is normal. 21. Normal inferior vena cava with normal inspiratory collapse consistent with estimated right atrial pressure of 5 mmHg. 22. There is no pericardial effusion. COVER SEAMER: Cheryl Bryan RDCS
[2018-12-30 12:20] VITALS: BP 131/68; PULSE 63
--- NOTE | 2018-12-30 16:08 | P.PAINCN ---
History of Present Illness - Reason for Consult Consult date: 12/30/18 - History of Present Illness This is a 63-year-old female patient referred for evaluation of low back pain radiating to left lower extremity. The patient reports that in mid August 2018 she suffered a severe bout of parvovirus. Her low back pain began in October 2018 and left leg pain began in November 2018 without any inciting events. She denies numbness and tingling, however endorses weakness in left hip flexion. She has been to physical therapy and acupuncture with no significant pain relief. Orthopedics was consulted and recommended conservative measures with interventional pain management.. Patient has been taking medications from primary care physician including gabapentin, tramadol, Advil with minimal benefit. Patient denies adverse drug effects from medications. Patient also denies new-onset weakness, bowel/bladder incontinence, or any other signs or symptoms of cauda equina syndrome. There are no signs of acute intoxication, and no indications of medication diversion or overuse. She was admitted to the hospital due to hypertensive issues with blood pressures measured at 200s over 100. They have been trying to control her blood pressure and is making some progress with this. Pain is located in the low back region radiating to left lateral and anterior thigh. Patient notes that pain worsens significantly in the morning times, and improves with rest and medication. In addition to above, 13-point review of systems is also negative for chest pain, shortness of breath, changes in vision, changes in hearing, new onset weakness, abdominal pain, diarrhea, extreme fatigue, malaise, fever, skin changes, homicidal or suicidal ideation, or bowel or bladder incontinence. Physical exam: Vital Signs: Reviewed in EMR GENERAL: Well appearing, in no acute distress, lying in bed PSYCH: Mood and affect is appropriate. Awake, alert, and oriented SKIN: Skin color, texture, turgor normal, no rashes or lesions HEENT: Normocephalic, atraumatic. EOM intact CV: No pedal edema RESP: Respirations are unlabored, no audible wheezing GI: Abdomen non-distended MUSCULOSKELETAL: Bilateral lower extremity strength is normal and symmetric except Left hip flexion is limited to 60, strength 4 out of 5 in left hip flexion. No atrophy or tone abnormalities are noted. Lumbar spine: Straight leg raising in the sitting position is negative for radicular pain. No pain to palpation over the lumbar spine and paraspinous muscles. Negative for pain with facet loading and back extension/rotation. Normal range of motion without pain reproduction Buttocks: No pain to palpation over the PSIS Extremities: Peripheral joint ROM is full and pain free without obvious instability or laxity in all four extremities. No edema or skin discolorations noted. NEUR: No loss of sensation is noted. Cranial nerves are grossly intact. Imaging: CT abdomen and pelvis shows severe spinal canal stenosis at L3-L4. This was done on 12/26/2018. Patient reports that she has had an MRI lumbar spine done in [place]. We do not have a copy of this with us. Assessment: 1. Lumbar radiculopathy 2. Lumbar degenerative disc disease 3. Lumbar spinal stenosis Plan: 1. Procedures: Will schedule left sided transforaminal epidural steroid injection at L3-4 as an outpatient. Patient was instructed to bring MRI lumbar spine report on day of procedure. Risks and benefits of procedure as well as alternatives were discussed with patient. We also discussed that if patient does not get significant relief from this procedure, would likely recommend orthopedic follow-up to discuss surgical options. 2. Medications: Medication management per primary team Disposition: For procedure as outpatient Past Medical History Past Medical History: Asthma, Hypertension Additional Past Medical History / Comment(s): BRAIN TUMOR, SPINAL CORD LESION, Parvo, fall with broken nose, necrotizing fasciitis History of Any Multi-Drug Resistant Organisms: None Reported Additional Past Surgical History / Comment(s): RIGHT HIP, septoplasty, Past Anesthesia/Blood Transfusion Reactions: No Reported Reaction Past Psychological History: No Psychological Hx Reported Smoking Status: Former smoker Past Alcohol Use History: Rare Past Drug Use History: Marijuana Additional Drug Use History / Comment(s): CBD oil - Past Family History mother Family Medical History: No Reported History father Family Medical History: No Reported History Medications and Allergies Home Medications Medication Instructions Recorded Confirmed Type Ibuprofen [Advil] 200 mg PO Q6HR PRN 12/27/18 12/27/18 History L. Rhamnosus GG/Inulin [Culturelle 1 cap PO DAILY 12/27/18 12/27/18 History Probiotics Capsule] QUEtiapine FUMARATE 12.5 mg PO HS 12/27/18 12/27/18 History Ubiquinol 100 mg PO DAILY 12/27/18 12/27/18 History Carvedilol [Coreg] 6.25 mg PO BID-W/MEALS #60 tab 12/28/18 Rx Lisinopril [Zestril] 40 mg PO DAILY #60 tab 12/30/18 Rx amLODIPine [Norvasc] 10 mg PO DAILY #30 tab 12/30/18 Rx cloNIDine HCL [Catapres] 0.1 mg PO BID #60 tab 12/30/18 Rx Allergies Allergy/AdvReac Type Severity Reaction Status Date / Time sulfamethoxazole Allergy Anaphylaxis Verified 12/27/18 07:32 [From Bactrim] trimethoprim [From Bactrim] Allergy Anaphylaxis Verified 12/27/18 07:32 fluoxetine AdvReac Rash/Hives Verified 12/27/18 07:32 fluoroquinolones Allergy Unknown Uncoded 12/27/18 07:32 Physical Exam Vitals: Vital Signs Temp Pulse Pulse Resp BP BP BP 12/30/18 12:00 63 16 131/68 12/30/18 11:36 16 12/30/18 08:00 97.9 F 69 16 158/79 12/30/18 04:33 98.3 F 65 15 169/81 12/29/18 23:34 97.9 F 68 16 168/79 172/81 12/29/18 19:53 98.2 F 65 15 192/88 168/85 12/29/18 16:00 71 16 188/90 Pulse Ox 12/30/18 12:00 97 12/30/18 11:36 12/30/18 08:00 97 12/30/18 04:33 97 12/29/18 23:34 96 12/29/18 19:53 96 12/29/18 16:00 96 Intake and Output 12/30/18 12/30/18 12/30/18 06:59 14:59 22:59 Intake Total 200 Balance 200 Intake: Oral 200 Other: Voiding Method Toilet Toilet # Voids 3 # Bowel Movements 0 Weight 75.6 kg Results CBC & Chem 7: 12/30/18 07:28 12/30/18 07:28 Labs: Abnormal Lab Results - Last 24 Hours (Table) 12/30/18 Range/Units 07:28 BUN 21 H (7-17) mg/dL Microbiology - Last 24 Hours (Table) 12/26/18 23:00 Blood Culture - Preliminary Blood No Growth after 72 hours PQRS Measure Charge Sheet PQRS Narrative: Smoking Status Former smoker Do You Want the Pneumonia Vaccine Up to Date Vaccine AT THIS TIME? Blood Pressure [Left Calf] 192/88 Blood Pressure [Left Arm] 131/68 Blood Pressure [Right Arm] 169/81 Blood Pressure 179/101 Pain Intensity [None] 0 Pain Intensity [Generalized] 0 Pain Intensity 0 Pain Scale Used Numeric (1 - 10) Scale Used Numeric (1 - 10) Home Medications: Ambulatory Orders Ibuprofen [Advil] 200 mg PO Q6HR PRN 12/27/18 L. Rhamnosus GG/Inulin [Culturelle Probiotics Capsule] 1 cap PO DAILY 12/27/18 QUEtiapine FUMARATE 12.5 mg PO HS 12/27/18 Ubiquinol 100 mg PO DAILY 12/27/18 Carvedilol [Coreg] 6.25 mg PO BID-W/MEALS #60 tab 12/28/18 Lisinopril [Zestril] 40 mg PO DAILY #60 tab 12/30/18 amLODIPine [Norvasc] 10 mg PO DAILY #30 tab 12/30/18 cloNIDine HCL [Catapres] 0.1 mg PO BID #60 tab 12/30/18
--- NOTE | 2018-12-30 18:53 | US ---
EXAMINATION TYPE: US renal artery duplex complet DATE OF EXAM: 12/30/2018 COMPARISON: NONE CLINICAL HISTORY: HTN. MEASUREMENTS: RENAL SIZE: Rt Kidney: 11.8 x 4.6 x 5.2 cm Lt Kidney: 12.0 x 4.6 x 6.7 cm RESISTANCE INDEX Right: 0.55 Left: 0.57 RA/AO RATIO (< 3.5 ) Right: 1.2 Left: 1.4 RA VELOCITY ( < 180 cm/s) Right: 98 Left: 121 Aorta unremarkable. Right renal upper pole cyst measures 1.9 x 1.5 x 1.8 cm. No ultrasound evidence f or renal artery stenosis. Good upstroke on segmental at renal hilum. Low resistive waveforms noted th roughout. IMPRESSION: Arcuate renal artery resistive indexes 0.53 which is normal. No evidence of renal artery stenosis. No evidence of any renal artery small vessel disease. No renal mass or obstruction.
--- NOTE | 2018-12-31 08:55 | P.DS ---
Providers Date of admission: 12/27/18 01:45 Expected date of discharge: 12/30/18 Attending physician: Jonathan Sánchez MD Consults: 12/29/18 12:51 Consult Physician Routine Consulting Provider: Bello Fraser Consult Reason/Comments: Severe spinal canal stenosis Do you want consulting provider notified?: Yes 12/29/18 14:42 Consult Physician Routine Consulting Provider: Neftali Robledo Consult Reason/Comments: HTN,uncontrolled Do you want consulting provider notified?: Yes 12/30/18 09:32 Consult to Anesthesia Routine Consulting Provider: Anesthesia,Services Consult Reason/Comments: Possible epidural steroid injection for Spinal stenosis with LLE ext radic Primary care physician: Jyoti [facility] Course: Final Diagnoses: (1) Accelerated hypertension Current Visit: Yes Status: Acute Code(s): I10 - ESSENTIAL (PRIMARY) HYPERTENSION SNOMED Code(s): 58909381 (2) Hypokalemia Current Visit: Yes Status: Acute Code(s): E87.6 - HYPOKALEMIA SNOMED Code(s): 23254498 (3) 11 mm low-density lesion right liver, likely a cyst; 15 mm low-density lesion in the right kidney- no obstructing stones, no hydronephrosis ;outpatient ultrasound recommended for further evaluation (4) grade 1 anterior listhesis of L3 on L4 with severe spinal canal stenosis (5) neurogenic intermittent claudication bilateral lower extremity secondary to spinal stenosis (6) degenerative disc disease, facet arthrosis (7) atelectasis (8) anxiety Hospital course:Claire Aden is a 63 yo F with PMH significant for hypertension, back pain, insomnia who presented to [facility] ED after she was found to be in hypertensive emergency at urgent care. She states she is currently being worked up for back pain and she had a viral infection a few months ago which she feels has caused her some residual fatigue and myalgias. Pt went to [email or web address] yesterday to discuss her fatigue and while there was noted to have a BP of 200s systolic over 100s. In the ED, pt was hypertensive to 220/120, pulse 64, remained of labs wnl with exception of mild hypokalemia. She denied chest pain but endorses headache and blurry vision. Pt also complained of generalized abdominal pain and CT abd/pelvis was performed which was negative. Pt was recently started on coreg by her PCP which she states controlls her BP somewhat but has not had a chance to adjust the dose as she has many side effects with BP medications. Pt states "I have tried about 50 different BP pills and none of them work." She complains of headache and blurry vision with the coreg, states she was recently trialled on aldactone which made her lightheaded. 12/28/2018 systolic blood pressures in the 170s ,increased lisinopril dose. Creatinine 0.59 Telemetry sinus rhythm. Complains of sciatica discomfort. Potassium 2.9, receiving supplements. Denies chest pain, palpitations or shortness of breath. Denies lightheadedness dizziness or focal deficits. 12/29/2018 telemetry sinus rhythm , systolic blood pressure fluctuating from 130s to 170s. Lisinopril dose increased, Norvasc added. Evaluated by cardiology, further medication adjustments, blood pressure improved.Patient will need outpatient renal ultrasound, to be arranged by PCP. Evaluated by orthopedic spine surgery. Surgical intervention discussed as an option after exhausting conservative measures. Interventional pain management consulted; scheduled for left-sided transforaminal epidural steroid injection at L3-4 outpatient. Cleared by all consults for discharge. Patient is being discharged home in stable condition with guarded prognosis. - Exam General: Alert and oriented 3, no acute distress Lungs: normal respiratory effort, no wheezes or rales CV: Regular rate and rhythm, no murmur. Peripheral pulses 2+ Abdomen: soft, nondistended, no organomegaly, positive bowel sounds Neuro: Cranial nerves II through XII grossly intact with currently no loss of sensation.no focal deficits The impression and plan of care has been dictated as directed. : I performed a history and examination of this patient, discussed the same with the dictator. I agree with the dictator's note ,documented as a scribe. Any additional findings or plans will be noted. Time taken: 35 minutes Patient Condition at Discharge: Stable Plan - Discharge Summary Discharge Rx Participant: No New Discharge Prescriptions: New Carvedilol [Coreg] 6.25 mg PO BID-W/MEALS #60 tab cloNIDine HCL [Catapres] 0.1 mg PO BID #60 tab amLODIPine [Norvasc] 10 mg PO DAILY #30 tab Lisinopril [Zestril] 40 mg PO DAILY #60 tab Continue Ibuprofen [Advil] 200 mg PO Q6HR PRN PRN Reason: Pain Ubiquinol 100 mg PO DAILY QUEtiapine FUMARATE 12.5 mg PO HS L. Rhamnosus GG/Inulin [Culturelle Probiotics Capsule] 1 cap PO DAILY Discontinued Carvedilol [Coreg] 1.56 - 3.125 mg PO BID Discharge Medication List Ibuprofen [Advil] 200 mg PO Q6HR PRN 12/27/18 [History] L. Rhamnosus GG/Inulin [Culturelle Probiotics Capsule] 1 cap PO DAILY 12/27/18 [History] QUEtiapine FUMARATE 12.5 mg PO HS 12/27/18 [History] Ubiquinol 100 mg PO DAILY 12/27/18 [History] Carvedilol [Coreg] 6.25 mg PO BID-W/MEALS #60 tab 12/28/18 [Rx] Lisinopril [Zestril] 40 mg PO DAILY #60 tab 12/30/18 [Rx] amLODIPine [Norvasc] 10 mg PO DAILY #30 tab 12/30/18 [Rx] cloNIDine HCL [Catapres] 0.1 mg PO BID #60 tab 12/30/18 [Rx] Follow up Appointment(s)/Referral(s): Pain Management, [Other] - 1 Week (Pain clinic office to call patient regarding appointment date and time for scheduled procedure Transforaminal Epidural Steroid Injection (left L3-4)) Damon Pino MD [STAFF PHYSICIAN] - 01/06/19 10:00 am Bello Fraser DO [Doctor of Osteopathic Medicine] - 01/25/19 9:00 am (First opening for patient, on cancellation wait list.) Jyoti Smith DO [Primary Care Provider] - 01/04/19 9:00 am Ambulatory/Diagnostic Orders: Complete Blood Count w/diff [LAB.AMB] Time Frame: 3 Days, Location: None Selected Patient Instructions/Handouts: Hypokalemia (DC), Lumbar Spinal Stenosis (DC), Hypertension (DC) Activity/Diet/Wound Care/Special Instructions: Pending final clearance from cardiology. Patient waiting to have renal ultrasound for clearance. Discharge Disposition: HOME SELF-CARE
== END 2018-12-30 17:20 | disposition home or self-care (01) ==
LOC: EC 20:52 → SUPCPDRO 20:52 → 3SCARD 12-27 01:45 → INTOOBSV 12-27 01:45 → UNDODISIN 12-30 17:20
PROVIDERS: ADMIT Family Medicine; ATTEND Family Medicine
DX: I16.1 Hypertensive emergency (principal); J98.11 Atelectasis; I10 Essential (primary) hypertension; E87.6 Hypokalemia; F41.9 Anxiety disorder, unspecified; J45.909 Unspecified asthma, uncomplicated; M43.16 Spondylolisthesis, lumbar region; M47.9 Spondylosis, unspecified; M48.062 Spinal stenosis, lumbar region with neurogenic claudication; M54.16 Radiculopathy, lumbar region; R35.0 Frequency of micturition; R31.29 Other microscopic hematuria; M54.30 Sciatica, unspecified side; K76.9 Liver disease, unspecified; N28.9 Disorder of kidney and ureter, unspecified; M79.89 Other specified soft tissue disorders; R11.0 Nausea; R10.84 Generalized abdominal pain; R10.30 Lower abdominal pain, unspecified; E66.9 Obesity, unspecified; Z68.29 Body mass index [BMI] 29.0-29.9, adult; Z79.899 Other long term (current) drug therapy; Z79.1 Long term (current) use of non-steroidal anti-inflammatories (NSAID); Z87.891 Personal history of nicotine dependence; Z86.19 Personal history of other infectious and parasitic diseases; Z88.1 Allergy status to other antibiotic agents; Z88.2 Allergy status to sulfonamides
CPT/HCPCS: 96361 ×2; 96374; 96375; 99285; 36415; 93005; 93306; 80053 ×2; 80048; 82150; 83690; 83735 ×2; 84132; 84484; 85025 ×2; 85610; 85730; 81001; 87040; 93975; 74176; G0378 ×4; J0360

== ENCOUNTER → 2019-01-06 | Outpatient (CLI) | payer OTHER ==
[2019-01-10 16:34] LABS: Metanephrine, Free <25 pg/mL (< OR = 57); Normetanephrine, Free 39 pg/mL (< OR = 148); Total, Free (MN + NMN) 39 pg/mL (< OR = 205)
== END | disposition home or self-care (01) ==
LOC: LABWHC1 11:01
PROVIDERS: ATTEND Internal Medicine Clinical Cardiac Electrophysiology
DX: I10 Essential (primary) hypertension (principal)
CPT/HCPCS: 36415; 82088; 82533; 83835; 84244

== ENCOUNTER → 2020-11-21 | Outpatient (CLI) | payer OTHER ==
--- NOTE | 2020-11-21 13:13 | CT ---
EXAMINATION TYPE: CT hip LT wo con DATE OF EXAM: 11/21/2020 COMPARISON: None. Prior CT pelvis was 2019 before surgery. HISTORY: chronic left hip pain post surgery x9 months CT DLP: 449.6 mGycm Automated exposure control for dose reduction was used. FINDINGS: Metallic hardware from total left hip arthroplasty is identified causing streak artifact making evalu ation slightly suboptimal. Position appears satisfactory. Metallic portion of the femoral head appear s satisfactory central line position and the metallic acetabular component. No suspicious surrounding lucency in the femoral component identified. There is mild subcutaneous edema and scarring along the anterolateral aspect of the left thigh. Muscl e bulk is preserved. No groin hernia or adenopathy identified. Visualized pelvic structures unremarka ble. There is postsurgical change L3-L4 level on the localizer. Postsurgical change right hip also no adams on localizer. IMPRESSION: As above. No CT evidence of complication.
== END | disposition home or self-care (01) ==
LOC: RADCTMAIN 12:34
PROVIDERS: ATTEND Orthopaedic Surgery
DX: R60.0 Localized edema (principal)

== ENCOUNTER → 2021-02-15 | Outpatient (CLI) | payer OTHER ==
--- NOTE | 2021-02-15 13:56 | NM ---
EXAMINATION TYPE: NM bone 3 phase DATE OF EXAM: 02/15/2021 COMPARISON: NONE HISTORY: Left hip pain Triple phase bone scintigraphy was performed following the injection of 22.2 mCi Tc 99m MDP. Immedia te images and 4.5 hours post injection images acquired. FINDINGS: There is symmetric flow to the hips bilaterally. Soft tissue windows demonstrate photopenic defect bilaterally suggestive of previous hip replacement surgery. Delayed imaging demonstrates asymmetrically increased uptake surrounding the prostheses in t he left hip. IMPRESSION: 1. There is asymmetric increased uptake involving the shaft of the left hip prostheses differential d iagnosis would include loosening. Infectious etiology not excluded and could be correlated with tagge d WBC study.
== END | disposition home or self-care (01) ==
LOC: RADNMMAIN 07:40
PROVIDERS: ATTEND Orthopaedic Surgery
DX: R93.6 Abnormal findings on diagnostic imaging of limbs (principal)
CPT/HCPCS: 78315; A9503

== ENCOUNTER → 2021-03-04 | Outpatient (CLI) | payer OTHER | END | disposition home or self-care (01) | LOC: LABWHC1 14:22 | PROVIDERS: ATTEND Orthopaedic Surgery | DX: M25.552 Pain in left hip (principal); M62.81 Muscle weakness (generalized); Z96.642 Presence of left artificial hip joint | CPT/HCPCS: 36415; 85379; 85652; 86140 ==

== ENCOUNTER 2023-01-22 00:53 | Emergency (ER) | payer OTHER ==
[2023-01-22 01:00] VITALS: TEMP 99
[2023-01-22] MEDS ORDERED: ORPHENADRINE 30 MG/ML 2 ML VIAL IM STA (02:19)
[2023-01-22] MEDS ORDERED: KETOROLAC 15 MG/ML 1 ML VIAL IM STA (02:19)
[2023-01-22] MEDS ORDERED: LIDOCAINE 5% PATCH TOPICAL SCH ×2 (03:00→09:00)
--- NOTE | 2023-01-22 03:03 | ED ---
General Adult HPI - General Chief complaint: Neck Pain/Injury Stated complaint: Neck, ear pain Time Seen by Provider: 01/22/23 01:04 Source: patient Mode of arrival: wheelchair Limitations: no limitations - History of Present Illness Initial comments: This is a 67-year-old female with a past medical history including recent left gluteal tendon tear repair as well as hypertension presents emergency department for left lateral neck pain. The patient stated that she woke up with this pain and could not move her neck while we are or another. The patient denied any numbness or tingling and denied any decreased strength. The patient also denied any lightheadedness or dizziness. The patient also denied midline tenderness. The patient was otherwise resting in bed comfortably. - Related Data Home Medications Medication Instructions Recorded Confirmed Ibuprofen [Advil] 200 mg PO Q6HR PRN 12/27/18 12/27/18 L. Rhamnosus GG/Inulin [Culturelle 1 cap PO DAILY 12/27/18 12/27/18 Digest 10B Cell Cap] QUEtiapine FUMARATE 12.5 mg PO HS 12/27/18 12/27/18 Ubiquinol [Co-Veratrol] 100 mg PO DAILY 12/27/18 12/27/18 Previous Rx's Medication Instructions Recorded carvediloL [Coreg] 6.25 mg PO BID-W/MEALS #60 tab 12/28/18 amLODIPine [Norvasc] 10 mg PO DAILY #30 tab 12/30/18 cloNIDine HCL [Catapres] 0.1 mg PO BID #60 tab 12/30/18 lisinopriL [Zestril] 40 mg PO DAILY #60 tab 12/30/18 Ketorolac [Toradol] 10 mg PO Q6HR #30 tab 01/22/23 methocarbamoL [Robaxin-750] 750 mg PO TID #30 tab 01/22/23 Allergies Allergy/AdvReac Type Severity Reaction Status Date / Time sulfamethoxazole Allergy Anaphylaxis Verified 12/27/18 07:32 [From Bactrim] trimethoprim [From Bactrim] Allergy Anaphylaxis Verified 12/27/18 07:32 fluoxetine AdvReac Rash/Hives Verified 12/27/18 07:32 fluoroquinolones Allergy Unknown Uncoded 12/27/18 07:32 Review of Systems ROS Statement: Those systems with pertinent positive or pertinent negative responses have been documented in the HPI. ROS Other: All systems not noted in ROS Statement are negative. Past Medical History Past Medical History: Asthma, Hypertension Additional Past Medical History / Comment(s): BRAIN TUMOR, SPINAL CORD LESION, Parvo, fall with broken nose, necrotizing fasciitis History of Any Multi-Drug Resistant Organisms: None Reported Additional Past Surgical History / Comment(s): RIGHT HIP, septoplasty, Past Anesthesia/Blood Transfusion Reactions: No Reported Reaction Past Psychological History: No Psychological Hx Reported Smoking Status: Former smoker Past Alcohol Use History: Rare Past Drug Use History: Marijuana - Past Family History mother Family Medical History: No Reported History father Family Medical History: No Reported History General Exam Limitations: no limitations General appearance: alert, in no apparent distress Head exam: Present: atraumatic, normocephalic, normal inspection Eye exam: Present: normal appearance, PERRL Pupils: Present: normal accommodation ENT exam: Present: normal exam, normal oropharynx, mucous membranes moist Neck exam: Present: tenderness (TTP to the left lateral cervical muscles without midline spinal tenderness), other (Decreased ROM 2/2 pain). Absent: full ROM Respiratory exam: Present: normal lung sounds bilaterally Cardiovascular Exam: Present: regular rate, normal rhythm, normal heart sounds GI/Abdominal exam: Present: soft, normal bowel sounds Extremities exam: Present: normal inspection, full ROM Back exam: Present: normal inspection, full ROM Neurological exam: Present: alert, oriented X3, CN II-XII intact Psychiatric exam: Present: normal affect, normal mood Skin exam: Present: warm, dry Course Vital Signs 01/22/23 01/22/23 00:56 03:55 Temperature 99 F Pulse Rate 83 82 Respiratory 16 17 Rate Blood Pressure 162/92 168/100 O2 Sat by Pulse 96 82 L Oximetry Medical Decision Making - Medical Decision Making Was pt. sent in by a medical professional or institution (, PA, POLISHER [employer], urgent care, hospital, or assisted...) When possible be specific @ -No Did you speak to anyone other than the patient for history (EMS, parent, family, police, friend...)? What history was obtained from this source @ -No Did you review nursing and triage notes (agree or disagree)? Why? @ -I reviewed and agree with nursing and triage notes Were old charts reviewed (outside hosp., previous admission, EMS record, old EKG, old radiological studies, urgent care reports/EKG's, assisted records)? Report findings @ -No old charts were reviewed Differential Diagnosis (chest pain, altered mental status, abdominal pain women, abdominal pain men, vaginal bleeding, weakness, fever, dyspnea, syncope, headache, dizziness, GI bleed, back pain, seizure, CVA, palpatations, mental health)? @ -No muscle strain, muscle spasm, contusion EKG interpreted by me (3pts min.). @ -None X-rays interpreted by me (1pt min.). @ -None done CT interpreted by me (1pt min.). @ -None done U/S interpreted by me (1pt. min.). @ -None done What testing was considered but not performed or refused? (CT, X-rays, U/S, labs)? Why? @ -The patient did not have any midline spinal tenderness therefore did not require any further imaging at this time. What meds were considered but not given or refused? Why? @ -None Did you discuss the management of the patient with other professionals (pr ofessionals i.e. , PA, POLISHER HAND, lab, RT, psych nurse, mental health social worker, fisheries diver, teacher, house officer, counter caser)? Give summary @ -No Was smoking cessation discussed for >3mins.? @ -No Was critical care preformed (if so, how long)? @ -No Were there social determinants of health that impacted care today? How? (Homelessness, low income, unemployed, alcoholism, drug addiction, transportation, low edu. Level, literacy, decrease access to med. care, residential, rehab)? @ -No Was there de-escalation of care discussed even if they declined (Discuss DNR or withdrawal of care, Hospice)? DNR status @ -No What co-morbidities impacted this encounter? (DM, HTN, Smoking, COPD, CAD, Cancer, CVA, ARF, Chemo, Hep., AIDS, mental health diagnosis, sleep apnea, morbid obesity)? @ -None Was patient admitted / discharged? Hospital course, mention meds given and route, prescriptions, significant lab abnormalities, going to OR and other pertinent info. @ -The patient was seen and evaluated emergency department. Physical exam, the patient was resting in bed without any acute distress. The patient did have some mild tenderness to palpation noted to the left lateral neck but denied of any midline spinal tenderness or concerning signs including any numbness or tingling noted. The patient was given IM Norflex and Toradol as well as a lidocaine patch and on reevaluation was sitting in the chair with improvement of her pain. The patient was requesting to be discharged home. The patient was advised that it would take several days for the pain to improve but she did state that she was improving currently. The patient was given a prescription for Robaxin and Toradol to be taken at home. The patient was advised to continue to follow-up with her primary care physician for further workup and evaluation and to report back to the emergency department if her pain became acutely worse. The patient was agreeable to this and all of her questions were answered. The patient was discharged home in stable condition. Undiagnosed new problem with uncertain prognosis? @ -No Drug Therapy requiring intensive monitoring for toxicity (Heparin, Nitro, Insulin, Cardizem)? @ -No Were any procedures done? @ -No Diagnosis/symptom? @ -Left cervical muscle strain Acute, or Chronic, or Acute on Chronic? @ -Acute Uncomplicated (without systemic symptoms) or Complicated (systemic symptoms)? @ -Uncomplicated Side effects of treatment? @ -No Exacerbation, Progression, or Severe Exacerbation? @ -No Poses a threat to life or bodily function? How? (Chest pain, [place], [place], pneumonia, PE, COPD, DKA, ARF, appy, cholecystitis, CVA, Diverticulitis, Homicidal, Suicidal, threat to staff... and all critical care pts) @ -No Disposition Clinical Impression: Strain of neck muscle Disposition: HOME SELF-CARE Condition: Stable Instructions (If sedation given, give patient instructions): Cervical Strain (ED) Prescriptions: methocarbamoL [Robaxin-750] 750 mg PO TID #30 tab Ketorolac [Toradol] 10 mg PO Q6HR #30 tab Is patient prescribed a controlled substance at d/c from ED?: No Referrals: Dana Frausto MD [Primary Care Provider] - 1-2 days Time of Disposition: 03:15
[2023-01-22 03:57] VITALS: BP 168/100; PULSE 82; RESP 17
== END 2023-01-22 03:56 | disposition home or self-care (01) ==
LOC: EC 00:53
DX: S16.1XXA Strain of muscle, fascia and tendon at neck level, initial encounter (principal); J45.909 Unspecified asthma, uncomplicated; I10 Essential (primary) hypertension; F12.90 Cannabis use, unspecified, uncomplicated; Z87.891 Personal history of nicotine dependence; Z88.2 Allergy status to sulfonamides; Z88.6 Allergy status to analgesic agent; Z88.8 Allergy status to other drugs, medicaments and biological substances; Z88.1 Allergy status to other antibiotic agents; X58.XXXA Exposure to other specified factors, initial encounter
CPT/HCPCS: 99283; 96372 ×2; J2360; J1885

== ENCOUNTER 2024-01-29 10:30 | Day surgery (SDC) | payer OTHER ==
[2024-01-29] MEDS ORDERED: LACTATED RINGERS 1,000 ML BAG ONE (11:00)
[2024-01-29] MEDS ORDERED: PROPOFOL 10 MG/ML 20 ML VIAL IV ONE (11:03)
--- NOTE | 2024-01-29 15:58 | PCN ---
PROCEDURE NOTE REQUESTING PHYSICIAN: Dr. Culver BRIEF HISTORY: The patient is a 68-year-old pleasant white female scheduled for an elective colonoscopy as part of evaluation of intermittent lower abdominal pain and change in bowel habits for the last several months' duration. She has been complaining of some chronic constipation for the last few months with occasional rectal bleeding. PROCEDURE PERFORMED: Colonoscopy. PREOPERATIVE DIAGNOSIS: Left lower quadrant abdominal pain and chronic constipation. ANESTHESIA: IV sedation per Anesthesia. DESCRIPTION OF PROCEDURE: After informed consent was obtained from the patient, she was brought in to the endoscopy unit. IV conscious sedation was administered by Anesthesia under continuous monitoring. Initial digital rectal examination was normal. The Olympus CF-190 video colonoscope was then inserted in the rectum, gradually advanced to the cecum. Careful examination was performed as the scope was gradually being withdrawn. The ileocecal valve and appendiceal orifice were visualized and appeared normal. The prep was excellent. The cecum, ascending colon, transverse colon, descending colon, sigmoid colon, and rectum appeared normal. In the rectum, retroflexion was performed. No lesions were noted. The patient tolerated the procedure well. Retroflexion was performed in the rectum and small internal hemorrhoids were seen. The patient tolerated the procedure well. IMPRESSION: 1. Normal-appearing colon from rectum to cecum with no evidence of colitis or colorectal neoplasia. 2. Small internal hemorrhoids. RECOMMENDATIONS: Findings of this examination were discussed with the patient as well as her family. She was advised to follow up with [facility]. She was advised to be on a high-fiber diet, take fiber supplements on a regular basis. Recommended repeat screening colonoscopy in 10 years. MMODL / IJN: [id number] /
== END 2024-01-29 11:51 ==
LOC: ORWHC2ENDO 10:30
PROVIDERS: ATTEND Internal Medicine Gastroenterology
DX: K64.8 Other hemorrhoids
CPT/HCPCS: 45378

== ENCOUNTER → 2024-02-19 | Outpatient (CLI) | payer OTHER ==
[2024-02-19 13:17] LABS: African American GFR (CKD) >90 (>60 ml/min/1.73 sqM); Blood Urea Nitrogen 19 mg/dL (7-17); Non-African American GFR(CKD) 89 (>60 ml/min/1.73 sqM)
--- NOTE | 2024-02-19 15:02 | CT ---
EXAMINATION TYPE: CT angio chest DATE OF EXAM: 02/19/2024 2:48 PM COMPARISON: None HISTORY: aneurysm CT DLP: 826 mGycm Automated exposure control for dose reduction was used. CONTRAST: CTA scan of the thorax is performed without and with IV Contrast, patient injected with 100 mL of Iso olive 370, pulmonary embolism protocol. 3-D postprocessing was performed. FINDINGS: There is 4.3 cm aneurysmal dilatation of the ascending thoracic aorta. There is no dissection. There is no pulmonary embolism. There is no mediastinal, hilar or axillary adenopathy. There is a 4.3 mm pulmonary nodule in the right upper lobe. There is a 6.7 mm nodule in the right upp er lobe. There is a 6.4 mm nodule in the left upper lobe. There is no airspace consolidation. There is no abnormal interstitial density. There is no pleural effusion, pleural thickening or pneumothorax. Limited scanning through the upper abdomen reveals no gross abnormality. No focal osseous lesions are seen. IMPRESSION: 1. 4.3 cm aneurysmal dilatation of the ascending thoracic aorta. 2. 3 pulmonary nodules to on the right and one on the left the largest measuring 6.7 mm the right upp er lobe. Recommend follow-up CT thorax to assess stability of the nodules in 3 months. 3. No acute cardiopulmonary disease.
== END | disposition home or self-care (01) ==
LOC: RADCTMAIN 12:13
PROVIDERS: ATTEND Family Medicine
DX: I71.20 Thoracic aortic aneurysm, without rupture, unspecified
CPT/HCPCS: 36415; 71275; 82565; 84520